=== PATIENT | female | born 1990 | race Caucasian/White ===

== ENCOUNTER 2017-03-06 11:18 | Emergency (ER) | payer OTHER ==
[2017-03-06 11:18] VITALS: BMI 24.2
[2017-03-06 11:33] VITALS: O2SAT 100
--- NOTE | 2017-03-06 13:10 | C.PDOC ---
Time Seen by Provider: 03/06/17 12:47 Chief Complaint (Nursing): Syncope Past Medical History Vital Signs: Last Vital Signs Temp 97.6 F 03/06/17 11:27 Pulse 67 03/06/17 11:27 Resp 20 03/06/17 11:27 BP 129/80 03/06/17 11:27 Pulse Ox 100 03/06/17 11:27 - Medical History PMH: - [facility] Procedures RADICAL EXCIS SKIN LES (07/03/14) - Social History Hx Tobacco Use: No Hx Alcohol Use: No Hx Substance Use: No - Immunization History Hx Tetanus Toxoid Vaccination: Yes Hx Influenza Vaccination: No Hx Pneumococcal Vaccination: No ED Course And Treatment O2 Sat by Pulse Oximetry: 100 Disposition - Disposition Disposition: HOME/ ROUTINE Disposition Time: 13:10 Condition: GOOD Forms: [facility] (Belarusian) - POA Present On Arrival: None - Clinical Impression Clinical Impression: Syncope
--- NOTE | 2017-03-06 13:12 | C.PDOC ---
History Of Present Illness 26 year old female brought to ED by ambulance for evaluation of an episode of syncope at work today. She states it lasted few seconds to minutes. Patient states that she has been sick with cough, and phlegm for the past week, and finished taking Zpack. Last night she did not sleep well secondary to coughing. This morning she she took Promethazine DM, and states that this was her first time taking Promethazine. She states while at work started feeling lightheaded and passed out. She states she had not eaten today, and feels this medication may have caused the syncope. Otherwise, denies any pain, current dizziness, headache, shortness of breath, or any other associated symptoms at this time. Patient states she does not want to be here and asking to go home. Time Seen by Provider: 03/06/17 12:47 Chief Complaint (Nursing): Syncope History Per: Patient History/Exam Limitations: no limitations Onset/Duration Of Symptoms: Hrs Current Symptoms Are (Timing): Still Present Associated Symptoms Preceding Syncopal Episode: Lightheadedness Fall Associated With With Symptoms: No Severity: None Pain Scale Rating Of: 0 Recent travel outside of the [place]: No Additional History Per: Patient, EMS Past Medical History Reviewed: Historical Data, Nursing Documentation, Vital Signs Vital Signs: Last Vital Signs Temp 98.7 F 03/06/17 13:49 Pulse 74 03/06/17 13:49 Resp 18 03/06/17 13:49 BP 113/68 03/06/17 13:49 Pulse Ox 100 03/06/17 13:49 - Medical History PMH: No Chronic Diseases - [facility] Procedures RADICAL EXCIS SKIN LES (07/03/14) Family History: States: Unknown Family Hx - Social History Hx Tobacco Use: No Hx Alcohol Use: No Hx Substance Use: No - Immunization History Hx Tetanus Toxoid Vaccination: Yes Hx Influenza Vaccination: No Hx Pneumococcal Vaccination: No Review Of Systems Except As Marked, All Systems Reviewed And Found Negative. Constitutional: Negative for: Fever, Chills Cardiovascular: Negative for: Chest Pain, Palpitations, Light Headedness Respiratory: Positive for: Cough. Negative for: Shortness of Breath Gastrointestinal: Negative for: Nausea, Vomiting Neurological: Negative for: Weakness, Numbness, Headache, Dizziness Physical Exam - Physical Exam Appears: Non-toxic, No Acute Distress Skin: Normal Color, Warm, Dry Head: Atraumatic, Normacephalic, No Tenderness, No Swelling Eye(s): bilateral: Normal Inspection, PERRL, EOMI Ear(s): Bilateral: Normal Nose: Normal Oral Mucosa: Moist Neck: Normal ROM, Supple Chest: Symmetrical Cardiovascular: Rhythm Regular, No Murmur Respiratory: Normal Breath Sounds, No Rales, No Rhonchi, No Wheezing Gastrointestinal/Abdominal: Soft, No Tenderness Extremity: Normal ROM, No Tenderness, No Deformity Neurological/Psych: Oriented x3, Normal Speech, Normal Cranial Nerves, Normal Motor, Normal Sensation, No Other (no focal deficits) Gait: Steady ED Course And Treatment ECG: Interpreted By Me, Viewed By Me ECG Rhythm: Sinus Rhythm ECG Interpretation: No Acute Changes Rate From EC (bpm) O2 Sat by Pulse Oximetry: 100 (RA) Pulse Ox Interpretation: Normal Medical Decision Making Medical Decision Making: Accucheck is 107 EKG ordered and reviewed. Patient states she feels fine and is requesting to be discharged home. She does not want any workup. Patient is alert and oriented in no acute distress. No neuro deficits. She has normal sinus rhythm on EKG. Her vital signs are stable. There is no apparent head or other injury from syncope. Patient advised to follow up with her PCP. Disposition Counseled Patient/Family Regarding: Diagnosis, Need For Followup - Disposition Referrals: Renate Astorga MD [Staff Provider] - Disposition: HOME/ ROUTINE Disposition Time: 13:10 Condition: GOOD Additional Instructions: Follow up with your primary medical doctor or clinic in 2-5 days for further evaluation. Return to the emergency department at any time if symptoms persist or worsen. Instructions: Syncope (GEN) Forms: [employer] [facility] (Czech) - POA Present On Arrival: None - Clinical Impression Clinical Impression: Syncope - PA / DRILL [employer]ENER / Resident Statement MD/DO has reviewed & agrees with the documentation as recorded. - Scribe Statement The provider has reviewed the documentation as recorded by the Ederibe Pau Granados All medical record entries made by the Scribe were at my direction and personally dictated by me. I have reviewed the chart and agree that the record accurately reflects my personal performance of the history, physical exam, medical decision making, and the department course for this patient. I have also personally directed, reviewed, and agree with the discharge instructions and disposition.
[2017-03-06 13:47] VITALS: RESP 18
[2017-03-06 13:50] VITALS: BP 113/68; PULSE 74; TEMP 98.7
--- NOTE | 2017-03-10 11:33 | CARD ---
APPROVED REPORT EKG Measurement Heart [id number] <Conclusion> Normal sinus rhythm Normal ECG
== END 2017-03-06 13:25 | disposition home or self-care (01) ==
LOC: C.ER 11:18
DX: R55 Syncope and collapse (principal)